=== PATIENT | female | born 1950 | race Caucasian/White ===

== ENCOUNTER 2019-08-02 07:57 | Outpatient (CLI) | payer MEDICARE, OTHER, SELFPAY ==
[2019-08-02 08:38] LABS: Cholesterol 184 mg/dL (0-200); HDL Direct 60 mg/dL; Triglycerides 191 mg/dL (<150)
[2019-08-02 08:49] LABS: LDL Cholesterol Direct 89 mg/dL
== END 2019-08-02 07:58 | disposition home or self-care (01) ==
PROVIDERS: PCP Internal Medicine; Visit Provider Nurse Practitioner
DX: R73.09 Other abnormal glucose (principal); E78.5 Hyperlipidemia, unspecified
CPT/HCPCS: 36415; 80061; 83036

== ENCOUNTER 2020-01-25 08:11 | Outpatient (CLI) | payer MEDICARE, OTHER, SELFPAY ==
[2020-01-25 08:38] LABS: Hemoglobin A1C 5.8 % (<5.7)
[2020-01-25 08:42] LABS: Alanine Aminotransferase 25 U/L (4-35); Albumin Level 4.2 g/dL (3.5-5.1); Alkaline Phosphatase 112 U/L (38-126); Anion Gap 11.1 mmol/L (7-16); Aspartate Amino Transferase 28 U/L (14-36); Bilirubin,Total 0.3 mg/dL (0.2-1.3); Blood Urea Nitrogen 14 mg/dL (7-17); Calcium 8.8 mg/dL (8.4-10.2); Carbon Dioxide 27 mmol/L (22-30); Chloride 105 mmol/L (98-107); Cholesterol 264 mg/dL (0-200); Estimated Glomerular Filt Rate > 60; Glucose 117 mg/dL (65-105); HDL Direct 58 mg/dL; Potassium 4.1 mmol/L (3.4-5.0); Sodium 139 mmol/L (137-145); Triglycerides 220 mg/dL (<150)
[2020-01-25 08:44] LABS: Creatinine Urine 188.6 mg/dL
[2020-01-25 08:48] LABS: MALB Creatinine Ratio 17.8 mg/g (0-30); Microalbumin Urine Random 33.5 mg/L (0-16.7)
[2020-01-25 08:53] LABS: LDL Cholesterol Direct 156 mg/dL
[2020-01-25 09:31] LABS: Vitamin B12 > 1000.0 pg/mL (239-931)
[2020-01-25 09:42] LABS: Vitamin D 25 Hydroxy 53.2 ng/mL
== END 2020-01-25 08:12 | disposition home or self-care (01) ==
LOC: ANHLAB 08:17
PROVIDERS: PCP Internal Medicine; Visit Provider Nurse Practitioner
DX: Z13.21 Encounter for screening for nutritional disorder (principal); R73.09 Other abnormal glucose; E78.5 Hyperlipidemia, unspecified
CPT/HCPCS: 36415; 80053; 80061; 82043; 82306; 82607; 83036

== ENCOUNTER → 2020-02-14 10:43 | Outpatient (CLI) | payer MEDICARE, OTHER, SELFPAY ==
--- NOTE | ~2020-02-14 | DEXA_ITS ---
Bone Density Report Name: Delilah Frye Age: 69 Sex: Female Ethnicity: White Date of : 1950 Indication: osteopenia; postmenopausal Referring Provider: CELINE CARR D.O. Study: Bone densitometry was performed. Exam Date: February 14, 2020 Accession number: [id number] Bone Density: Region BMD T-score Z-score Classification AP Spine (L1-L4) 1.046 0.0 2.0 Normal Femoral Neck (Left) 0.643 -1.9 -0.1 Osteopenia Total Hip (Left) 0.803 -1.1 0.3 Osteopenia Femoral Neck (Right) 0.696 -1.4 0.3 Osteopenia Total Hip (Right) 0.806 -1.1 0.3 Osteopenia Total Hip Mean 0.805 -1.1 0.3 Osteopenia World Health Organization criteria for BMD impression classify patients as: Normal (T-score at or above -1.0), Osteopenia (T-score between -1.0 and -2.5), or Osteoporosis (T-score at or below -2.5). 10-year Fracture Risk(1): Major Osteoporotic Fracture 11% Hip Fracture 1.6% Reported Risk Factors: [place] (), Neck BMD=0.643, BMI=29.4 (1) FRAX(R) Version 3.08. Fracture probability calculated for an untreated patient. Fracture probability may be lower if the patient has received treatment. Previous Exams: Region Exam Age BMD T-score BMD Change BMD Change Date g/cm2 vs Baseline vs Previous AP Spine(L1-L4) 02/14/2020 69 1.046 0.0 -0.026* -0.003 01/12/2017 66 1.049 0.0 -0.023* -0.011 12/24/2014 64 1.060 0.1 -0.012 -0.015 11/25/2012 62 1.076 0.3 0.004 -0.036* 01/01/2010 59 1.111 0.6 0.039* 0.039* 12/19/2007 57 1.072 0.2 Total Hip(Left) 02/14/2020 69 0.803 -1.1 -0.008 0.001 01/12/2017 66 0.802 -1.1 -0.008 -0.027 12/24/2014 64 0.829 -0.9 0.019 0.032* 11/25/2012 62 0.798 -1.2 -0.013 -0.023 01/01/2010 59 0.821 -1.0 0.010 0.010 12/19/2007 57 0.810 -1.1 Total Hip(Right) 02/14/2020 69 0.806 -1.1 -0.036* -0.039* 01/12/2017 66 0.844 -0.8 0.002 -0.034* 12/24/2014 64 0.879 -0.5 0.037* 0.063* 11/25/2012 62 0.816 -1.0 -0.026 -0.002 01/01/2010 59 0.818 -1.0 -0.024 -0.024 12/19/2007 57 0.842 -0.8 *Denotes significance at 95% confidence level, LSC for AP Spine = 0.022 g/cm2, LSC for Total Hip = 0.027 g/cm2 Clinical Information Provided by Patient: Has used th
== END ==
PROVIDERS: PCP Internal Medicine; Visit Provider Internal Medicine
DX: Z78.0 Asymptomatic menopausal state (principal); M85.852 Other specified disorders of bone density and structure, left thigh; M85.851 Other specified disorders of bone density and structure, right thigh
CPT/HCPCS: 77080

== ENCOUNTER 2020-09-16 08:51 | Outpatient (CLI) | payer MEDICARE, OTHER, SELFPAY ==
[2020-09-16 09:13] LABS: Hemoglobin A1C 5.6 % (<5.7)
[2020-09-16 09:15] LABS: Potassium 3.7 mmol/L (3.4-5.0)
[2020-09-16 09:20] LABS: Alanine Aminotransferase 22 U/L (4-35); Albumin Level 4.2 g/dL (3.5-5.1); Alkaline Phosphatase 94 U/L (38-126); Anion Gap 7 mmol/L (8-16); Aspartate Amino Transferase 26 U/L (14-36); Bilirubin,Total 0.4 mg/dL (0.2-1.3); Blood Urea Nitrogen 16 mg/dL (7-17); Calcium 9.1 mg/dL (8.4-10.2); Carbon Dioxide 29 mmol/L (22-30); Chloride 106 mmol/L (98-107); Cholesterol 178 mg/dL (0-200); Estimated Glomerular Filt Rate > 60; Glucose 120 mg/dL (65-105); HDL Direct 56 mg/dL; Sodium 142 mmol/L (137-145); Triglycerides 163 mg/dL (<150)
[2020-09-16 09:26] LABS: LDL Cholesterol Direct 82 mg/dL
== END 2020-09-16 08:52 | disposition home or self-care (01) ==
PROVIDERS: PCP Internal Medicine; Visit Provider Internal Medicine
DX: E78.5 Hyperlipidemia, unspecified (principal); R73.03 Prediabetes; Z79.899 Other long term (current) drug therapy
CPT/HCPCS: 36415; 80053; 80061; 83036

== ENCOUNTER → 2020-09-25 10:45 | Outpatient (CLI) | payer MEDICARE, OTHER, SELFPAY ==
--- NOTE | ~2020-09-25 | XR_ITS ---
XR lumbar spine 2-3V DATE: 09/25/2020 11:15 INDICATION: Back pain TECHNIQUE: AP, lateral, coned lateral lumbosacral views COMPARISON: None FINDINGS: Normal alignment of the lumbar spine. No fracture or bone destruction or spondylolisthesis. The lumbar pedicles are intact. There is minimal degenerative spurring at L2-3 consistent with mild degenerative disc disease. Lumbar and lumbosacral interspaces appear relatively well preserved. The sacroiliac joints are intact. Surgical clips, right upper quadrant, consistent with cholecystectomy. IMPRESSION: Mild degenerative disc disease at L2-3 Reviewed, dictated and finalized at location A.
== END ==
PROVIDERS: PCP Internal Medicine; Visit Provider Internal Medicine
DX: M47.816 Spondylosis without myelopathy or radiculopathy, lumbar region (principal)
CPT/HCPCS: 72100

== ENCOUNTER → 2021-01-24 10:16 | Outpatient (CLI) | payer MEDICARE, OTHER, SELFPAY ==
--- NOTE | ~2021-01-24 | MM_ITS ---
EXAMINATION: MM screening [facility] BI w [facility] HISTORY: Screening TECHNIQUE: Craniocaudal and mediolateral oblique 3-D tomosynthesis images were obtained and synthetic 2-D images were generated. CAD analysis was submitted and interpreted. COMPARISON: Comparison to multiple prior studies sequentially, with oldest reviewed study dated 01/31. BREAST PARENCHYMAL COMPOSITION: There are scattered areas of fibroglandular density. FINDINGS: There is no evidence of suspicious mass, calcification, or architectural distortion to sugg est malignancy in either breast. There has been no suspicious interval change. IMPRESSION: 1. No mammographic evidence of malignancy. 2. Recommend routine screening mammography in one year. BI-RADS Category 1: Negative Reviewed, dictated and finalized at location A.
== END ==
PROVIDERS: PCP Internal Medicine; Visit Provider Nurse Practitioner
DX: Z12.31 Encounter for screening mammogram for malignant neoplasm of breast (principal)
CPT/HCPCS: 77063; 77067

== ENCOUNTER 2021-03-31 07:50 | Outpatient (CLI) | payer MEDICARE, OTHER, SELFPAY ==
[2021-03-31 09:07] LABS: Alanine Aminotransferase 23 U/L (4-35); Albumin Level 4.4 g/dL (3.5-5.1); Alkaline Phosphatase 99 U/L (38-126); Anion Gap 7 mmol/L (8-16); Aspartate Amino Transferase 28 U/L (14-36); Bilirubin,Total 0.5 mg/dL (0.2-1.3); Blood Urea Nitrogen 16 mg/dL (7-17); Calcium 9.3 mg/dL (8.4-10.2); Carbon Dioxide 28 mmol/L (22-30); Chloride 107 mmol/L (98-107); Cholesterol 201 mg/dL (0-200); Estimated Glomerular Filt Rate > 60; Glucose 114 mg/dL (65-110); HDL Direct 70 mg/dL; Potassium 4.1 mmol/L (3.4-5.0); Sodium 142 mmol/L (137-145); Triglycerides 138 mg/dL (<150)
[2021-03-31 09:09] LABS: Hemoglobin A1C 5.8 % (<5.7)
[2021-03-31 09:19] LABS: LDL Cholesterol Direct 81 mg/dL
[2021-03-31 09:34] LABS: Vitamin D 25 Hydroxy 54.2 ng/mL
== END 2021-03-31 07:51 | disposition home or self-care (01) ==
LOC: ANHLAB 07:52
PROVIDERS: PCP Internal Medicine; Visit Provider Internal Medicine
DX: E78.5 Hyperlipidemia, unspecified (principal); R73.03 Prediabetes; Z79.899 Other long term (current) drug therapy; E53.8 Deficiency of other specified B group vitamins; E55.9 Vitamin D deficiency, unspecified
CPT/HCPCS: 36415; 80053; 80061; 82306; 82607; 83036

== ENCOUNTER 2021-10-20 08:51 | Outpatient (CLI) | payer MEDICARE, SELFPAY ==
[2021-10-20 09:39] LABS: Alanine Aminotransferase 30 U/L (4-35); Albumin Level 4.4 g/dL (3.5-5.1); Alkaline Phosphatase 109 U/L (38-126); Anion Gap 6 mmol/L (8-16); Aspartate Amino Transferase 31 U/L (14-36); Bilirubin,Total 0.5 mg/dL (0.2-1.3); Blood Urea Nitrogen 13 mg/dL (7-17); Calcium 8.9 mg/dL (8.4-10.2); Carbon Dioxide 27 mmol/L (22-30); Chloride 106 mmol/L (98-107); Cholesterol 214 mg/dL (0-200); Estimated Glomerular Filt Rate > 60; Glucose 122 mg/dL (65-110); HDL Direct 66 mg/dL; Potassium 3.8 mmol/L (3.4-5.0); Sodium 139 mmol/L (137-145); Triglycerides 156 mg/dL (<150)
[2021-10-20 09:50] LABS: LDL Cholesterol Direct 95 mg/dL
[2021-10-20 09:56] LABS: Hemoglobin A1C 5.6 % (<5.7)
== END 2021-10-20 08:52 | disposition home or self-care (01) ==
PROVIDERS: PCP Internal Medicine; Visit Provider Nurse Practitioner
DX: E78.5 Hyperlipidemia, unspecified (principal); R73.09 Other abnormal glucose
CPT/HCPCS: 36415; 80053; 80061; 83036

== ENCOUNTER 2022-10-27 08:19 | Outpatient (CLI) | payer MEDICARE, SELFPAY ==
[2022-10-27 08:49] LABS: Alanine Aminotransferase 31 U/L (6-35); Albumin Level 4.3 g/dL (3.5-5.1); Alkaline Phosphatase 103 U/L (38-126); Anion Gap 7 mmol/L (8-16); Aspartate Amino Transferase 31 U/L (14-36); Bilirubin,Total 0.6 mg/dL (0.2-1.3); Blood Urea Nitrogen 15 mg/dL (7-17); Calcium 8.9 mg/dL (8.4-10.2); Carbon Dioxide 28 mmol/L (22-30); Chloride 105 mmol/L (98-107); Cholesterol 200 mg/dL (0-200); Estimated Glomerular Filt Rate > 60; Glucose 115 mg/dL (65-110); HDL Direct 59 mg/dL; Potassium 3.9 mmol/L (3.4-5.0); Sodium 140 mmol/L (137-145); Triglycerides 148 mg/dL (<150)
[2022-10-27 08:51] LABS: Hemoglobin A1C 5.7 % (<5.7)
[2022-10-27 09:01] LABS: LDL Cholesterol Direct 96 mg/dL
[2022-10-27 09:29] LABS: Vitamin D 25 Hydroxy 60.8 ng/mL
== END 2022-10-27 08:20 | disposition home or self-care (01) ==
PROVIDERS: Internal Medicine; PCP Family Medicine; Visit Provider Family Medicine
DX: R73.09 Other abnormal glucose (principal); Z13.21 Encounter for screening for nutritional disorder; E78.2 Mixed hyperlipidemia; Z79.899 Other long term (current) drug therapy; E55.9 Vitamin D deficiency, unspecified
CPT/HCPCS: 36415; 80053; 80061; 82306; 82607; 83036

== ENCOUNTER → 2023-01-22 14:34 | Outpatient (CLI) | payer MEDICARE, SELFPAY ==
--- NOTE | ~2023-01-22 | MM_ITS ---
EXAMINATION: MM screening [facility] BI w [facility] HISTORY: Screening mammogram TECHNIQUE: Craniocaudal and mediolateral oblique 3-D tomosynthesis images were obtained and synthetic 2-D images were generated. CAD analysis was submitted and interpreted. COMPARISON: 01/24/2021, 02/13/2019, 02/25/2018 bilateral screening mammogram examinations BREAST PARENCHYMAL COMPOSITION: There are scattered areas of fibroglandular density. FINDINGS: There is a biopsy marker on each side; history of prior benign right and left breast biopsi es. There is no evidence of suspicious mass, calcification, or architectural distortion to suggest ma lignancy in either breast. There has been no suspicious interval change. IMPRESSION: 1. No mammographic evidence of malignancy. 2. Recommend routine screening mammography in one year. BI-RADS Category 1: Negative Reviewed, dictated and finalized at location A.
--- NOTE | ~2023-01-22 | DEXA_ITS ---
Bone Density Report Name: CHIKIS AARON Age: 72 Sex: Female Ethnicity: White Date of : 1950 Indication: osteopenia; postmenopausal Referring Provider: JUSTO GERONIMO Study: Bone densitometry was performed. Exam Date: January 22, 2023 Accession number: [id number] Bone Density: Region BMD T-score Z-score Classification AP Spine (L1-L4) 0.984 -0.6 1.6 Normal Femoral Neck (Left) 0.652 -1.8 0.1 Osteopenia Total Hip (Left) 0.815 -1.0 0.5 Normal Femoral Neck (Right) 0.676 -1.6 0.3 Osteopenia Total Hip (Right) 0.808 -1.1 0.5 Osteopenia Total Hip Mean 0.812 -1.1 0.5 Osteopenia World Health Organization criteria for BMD impression classify patients as: Normal (T-score at or above -1.0), Osteopenia (T-score between -1.0 and -2.5), or Osteoporosis (T-score at or below -2.5). 10-year Fracture Risk(1): Major Osteoporotic Fracture 11% Hip Fracture 1.9% Reported Risk Factors: [place] (), Neck BMD=0.652, BMI=29.1 (1) FRAX(R) Version 3.08. Fracture probability calculated for an untreated patient. Fracture probability may be lower if the patient has received treatment. Previous Exams: Region Exam Age BMD T-score BMD Change BMD Change Date g/cm2 vs Baseline vs Previous AP Spine(L1-L4) 01/22/2023 72 0.984 -0.6 -0.088* -0.062* 02/14/2020 69 1.046 0.0 -0.026* -0.003 01/12/2017 66 1.049 0.0 -0.023* -0.011 12/24/2014 64 1.060 0.1 -0.012 -0.015 11/25/2012 62 1.076 0.3 0.004 -0.036* 01/01/2010 59 1.111 0.6 0.039* 0.039* 12/19/2007 57 1.072 0.2 Total Hip(Left) 01/22/2023 72 0.815 -1.0 0.005 0.013 02/14/2020 69 0.803 -1.1 -0.008 0.001 01/12/2017 66 0.802 -1.1 -0.008 -0.027 12/24/2014 64 0.829 -0.9 0.019 0.032* 11/25/2012 62 0.798 -1.2 -0.013 -0.023 01/01/2010 59 0.821 -1.0 0.010 0.010 12/19/2007 57 0.810 -1.1 Total Hip(Right) 01/22/2023 72 0.808 -1.1 -0.033* 0.003 02/14/2020 69 0.806 -1.1 -0.036* -0.039* 01/12/2017 66 0.844 -0.8 0.002 -0.034* 12/24/2014 64 0.879 -0.5 0.037* 0.063* 11/25/2012 62 0.816 -1.0 -0.026 -0.002 01/01/2010 59 0.818 -1.0 -0.024 -0.024 12/19/2007 57 0.842 -0.8 *Denotes significance at 95% confidence level, LSC for
== END ==
PROVIDERS: PCP Obstetrics & Gynecology Gynecology; Visit Provider Family Medicine
DX: Z12.31 Encounter for screening mammogram for malignant neoplasm of breast (principal); Z78.0 Asymptomatic menopausal state; M85.852 Other specified disorders of bone density and structure, left thigh; M85.851 Other specified disorders of bone density and structure, right thigh
CPT/HCPCS: 77063; 77067; 77080

== ENCOUNTER 2023-11-11 07:48 | Outpatient (CLI) | payer MEDICARE, OTHER, SELFPAY ==
[2023-11-11 08:38] LABS: Hematocrit 48.5 % (37.0-47.0); Hemoglobin 15.3 g/dL (12.0-15.0); Mean Corpuscular HGB Conc 31.5 g/dl (32-36); Mean Corpuscular Hemoglobin 27.9 pg (26-34); Mean Corpuscular Volume 88.5 fl (80-100); Mean Platelet Volume 10.6 fl (7.4-10.4); Platelet Count Result 306 k/mm3 (150-375); Red Blood Count 5.48 M/mm3 (4.2-5.4); Red Cell Distribution Width 13.9 % (11.5-14.5); White Blood Count 6.1 K/mm3 (4.5-10.0)
[2023-11-11 08:54] LABS: Alanine Aminotransferase 23 U/L (6-35); Albumin Level 4.5 g/dL (3.5-5.1); Alkaline Phosphatase 103 U/L (38-126); Anion Gap 9 mmol/L (4-12); Aspartate Amino Transferase 28 U/L (14-36); Bilirubin,Total 0.7 mg/dL (0.2-1.3); Blood Urea Nitrogen 15 mg/dL (7-17); Calcium 9.1 mg/dL (8.4-10.2); Carbon Dioxide 25 mmol/L (22-30); Chloride 107 mmol/L (98-107); Cholesterol 208 mg/dL (0-200); Estimated Glomerular Filt Rate > 60; Glucose 113 mg/dL (65-110); HDL Direct 66 mg/dL; Potassium 3.6 mmol/L (3.4-5.0); Sodium 141 mmol/L (137-145); Triglycerides 210 mg/dL (<150)
[2023-11-11 09:05] LABS: LDL Cholesterol Direct 105 mg/dL
== END 2023-11-11 07:49 | disposition home or self-care (01) ==
PROVIDERS: PCP Family Medicine; Visit Provider Nurse Practitioner
DX: E78.2 Mixed hyperlipidemia (principal); R73.09 Other abnormal glucose; M17.11 Unilateral primary osteoarthritis, right knee; M85.80 Other specified disorders of bone density and structure, unspecified site; R03.0 Elevated blood-pressure reading, without diagnosis of hypertension; R31.21 Asymptomatic microscopic hematuria
CPT/HCPCS: 36415; 80053; 80061; 85027

== ENCOUNTER 2024-01-06 08:19 | Outpatient (CLI) | payer MEDICARE, OTHER, SELFPAY ==
[2024-01-06 08:51] LABS: Hematocrit 47.5 % (37.0-47.0); Hemoglobin 15.5 g/dL (12.0-15.0); Mean Corpuscular HGB Conc 32.6 g/dl (32-36); Mean Corpuscular Hemoglobin 28.5 pg (26-34); Mean Corpuscular Volume 87.3 fl (80-100); Mean Platelet Volume 10.3 fl (7.4-10.4); Platelet Count Result 303 k/mm3 (150-375); Red Blood Count 5.44 M/mm3 (4.2-5.4); Red Cell Distribution Width 13.7 % (11.5-14.5); White Blood Count 6.6 K/mm3 (4.5-10.0)
[2024-01-06 09:44] LABS: Iron 122 ug/dL (37-170)
[2024-01-06 09:54] LABS: Percent Iron Saturation 51 % (20-50)
[2024-01-06 10:18] LABS: Hemoglobin A1C 6.1 % (<5.7)
== END 2024-01-06 08:20 | disposition home or self-care (01) ==
PROVIDERS: PCP Family Medicine; Visit Provider Family Medicine
DX: R73.03 Prediabetes (principal); R73.09 Other abnormal glucose; E78.2 Mixed hyperlipidemia; D75.1 Secondary polycythemia; D64.9 Anemia, unspecified
CPT/HCPCS: 36415; 83036; 83540; 83550; 85027

== ENCOUNTER 2024-04-17 09:35 | Outpatient (CLI) | payer MEDICARE, OTHER, SELFPAY ==
[2024-04-17 10:20] LABS: Basophils Absolute Auto 0.1 K/mm3 (0.0-0.1); Eosinophils Absolute Auto 0.1 K/mm3 (0-0.3); Eosinophils Percent Auto 1.8 % (0-4.4); Hematocrit 44.6 % (37.0-47.0); Hemoglobin 14.6 g/dL (12.0-15.0); Immature Granulocyte Absolute 0.01 K/mm3 (0.00-0.031); Immature Granulocyte Percent A 0.2 % (0-0.5); Lymphocytes Absolute Auto 1.93 K/mm3 (0.9-3.2); Mean Corpuscular HGB Conc 32.7 g/dl (32-36); Mean Corpuscular Hemoglobin 28.7 pg (26-34); Mean Corpuscular Volume 87.8 fl (80-100); Mean Platelet Volume 10.5 fl (7.4-10.4); Monocytes Absolute Auto 0.4 K/mm3 (0.1-0.6); Monocytes Percent Auto 5.9 % (2.6-8.5); Neutrophils Absolute Auto 3.7 K/mm3 (1.3-6.7); Neutrophils Percent Auto 60.1 % (45.5-73.1); Platelet Count Result 300 k/mm3 (150-375); Red Blood Count 5.08 M/mm3 (4.2-5.4); Red Cell Distribution Width 13.6 % (11.5-14.5); White Blood Count 6.2 K/mm3 (4.5-10.0)
[2024-04-17 11:12] LABS: Iron 82 ug/dL (37-170)
[2024-04-17 11:22] LABS: Percent Iron Saturation 33 % (20-50)
[2024-04-21 14:44] LABS: Erythropoietin (EPO) 8.3 mIU/mL (2.6-18.5)
== END 2024-04-17 09:36 | disposition home or self-care (01) ==
PROVIDERS: PCP Family Medicine; Visit Provider Family Medicine
DX: E78.2 Mixed hyperlipidemia (principal); D75.1 Secondary polycythemia; D64.9 Anemia, unspecified
CPT/HCPCS: 36415; 82668; 83540; 83550; 85025

== ENCOUNTER 2025-03-28 13:05 | Outpatient (CLI) | payer MEDICARE, OTHER, SELFPAY ==
--- NOTE | ~2025-03-28 | DEXA_ITS ---
Bone Density Report Name: CHIKIS AARON Age: 74 Sex: Female Ethnicity: White Date of : 1950 Indication: osteopenia; Referring Provider: JUSTO GERONIMO Study: Bone densitometry was performed. Exam Date: March 28, 2025 Accession number: [id number] Bone Density: Region BMD T-score Z-score Classification AP Spine(L1-L4) 0.994 -0.5 1.8 Normal Femoral Neck (Left) 0.604 -2.2 -0.2 Osteopenia Total Hip (Left) 0.750 -1.6 0.1 Osteopenia Femoral Neck (Right) 0.647 -1.8 0.2 Osteopenia Total Hip (Right) 0.741 -1.6 0.1 Osteopenia Total Hip Mean 0.746 -1.6 0.1 Osteopenia World Health Organization criteria for BMD impression classify patients as: Normal (T-score at or above -1.0), Osteopenia (T-score between -1.0 and -2.5), or Osteoporosis (T-score at or below -2.5). 10-year Fracture Risk(1): Major Osteoporotic Fracture 13% Hip Fracture 3.3% Reported Risk Factors: [place] (), Neck BMD=0.604, BMI=27.9 (1) FRAX(R) Version 3.08. Fracture probability calculated for an untreated patient. Fracture probability may be lower if the patient has received treatment. Previous Exams: -- Region Exam Age BMD T-score BMD Change BMD Change Date g/cm2 vs Baseline vs Previous -- AP Spine (L1-L4) 03/28/2025 74 0.994 -0.5 -7.2%* 1.0% 01/22/2023 72 0.984 -0.6 -8.2%* -5.9%* 02/14/2020 69 1.046 0.0 -2.4%* -0.3% 01/12/2017 66 1.049 0.0 -2.2%* -1.1% 12/24/2014 64 1.060 0.1 -1.1% -1.4% 11/25/2012 62 1.076 0.3 0.3% -3.2%* 01/01/2010 59 1.111 0.6 3.7%* 3.7%* 12/19/2007 57 1.072 0.2 Total Hip(Left) 03/28/2025 74 0.750 -1.6 -7.5%* -8.0%* 01/22/2023 72 0.815 -1.0 0.6% 1.6% 02/14/2020 69 0.803 -1.1 -1.0% 0.1% 01/12/2017 66 0.802 -1.1 -1.0% -3.3% 12/24/2014 64 0.829 -0.9 2.3% 4.0%* 11/25/2012 62 0.798 -1.2 -1.6% -2.8% 01/01/2010 59 0.821 -1.0 1.3% 1.3% 12/19/2007 57 0.810 -1.1 Total Hip(Right) 03/28/2025 74 0.741 -1.6 -11.9%* -8.3%* 01/22/2023 72 0.808 -1.1 -4.0%* 0.4% 02/14/2020 69 0.806 -1.1 -4.3%* -4.6%* 01/12/2017 66 0.844 -0.8 0.3% -3.9%* 12/24/2014 64 0.879 -0.5 4.4%* 7.7%* 11/25/2012 62 0.816 -1.0 -3.1% -0.3% 01/01/2010 59 0.818 -1.0 -2.8% -2.8% 12/19/2007 57 0.842 -0.8 -- *Denotes significance at 95% confidence level, LSC for AP Spine = 0.022 g/cm2, LSC for Total Hip = 0.027 g/cm2 Clinical Information Provided by Patient: Has used the following medications: Vitamin D Patient maximum height was 59 Menopause Age: 57 Drinks caffeinated beverages Onset of menses at age 13 Number of children 2 Impression: The patient has low bone mass, based on the Left Femoral Neck T-score. The patient has an estimated ten-year risk of hip fracture of 3.3% and an estimated ten-year risk of major fracture of 13%, based on the WHO FRAX algorithm. The BMD for the Total Hip(Left) decreased, changing by -8.0% since the last DXA exam. The BMD for the Total Hip(Right) decreased, changing by -8.3% since the last DXA exam. Discussion: BONE DENSITY IS LOW AT ONE OR MORE SKELETAL SITES. THE PATIENT'S BMD AND CLINICAL RISK FACTORS CONTRIBUTE TO THIS PATIENT'S INCREASED RISK OF FRACTURE. This patient's lowest T-score is low at one or more skeletal sites. It meets the World Health Organization's (WHO) criteria for ?low bone mass? (T-score between -1.0 and -2.5). The patient's 10-year risk of hip fracture as calculated by FRAX exceeds the threshold where pharmacological therapy is recommended by the National Osteoporosis Foundation (NOF). However, all treatment decisions require clinical judgment and consideration of individual patient factors, including patient preferences, comorbidities, previous drug use, risk factors not captured in the FRAX model (e.g., frailty, falls, vitamin D deficiency, increased bone turnover, interval significant decline in bone density) and possible under or overestimation of fracture risk by FRAX. The patient should follow a healthful lifestyle (good nutrition with adequate calcium and vitamin D, and appropriate weight-bearing exercise). Follow-Up: Consider a repeat BMD and Vertebral Fracture Assessment (VFA) exam in 2 years or sooner if medically necessary, to reassess this patient's status. Reported by: FELIX on 03/28/2025 1:27:00 PM. Reviewed, dictated and finalized at location A.
== END 2025-03-28 13:06 | disposition home or self-care (01) ==
LOC: MICIMG 13:07
PROVIDERS: PCP Nurse Practitioner; Visit Provider Family Medicine
DX: M85.89 Other specified disorders of bone density and structure, multiple sites (principal); Z78.0 Asymptomatic menopausal state
CPT/HCPCS: 77080